=== PATIENT | female | born 1995 ===

== ENCOUNTER 2019-12-09 23:30 | Emergency (ER) | payer SELFPAY ==
--- NOTE | 2019-12-10 00:26 | ER Document Report ---
ED Medical Screen (RME) - General Chief Complaint: Vag Bleeding, +preg <12wks Stated Complaint: VAGINAL BLEEDING/8 WEEKS Time Seen by Provider: 12/10/19 00:22 Mode of Arrival: Ambulatory Information source: Patient Notes: Patient is an otherwise healthy 24-year-old female G1, P0 presenting to the emergency department with complaints of vaginal bleeding in the setting of early . Patient reports she is approximately 8 weeks , states that she started having some bright red bleeding tonight. She denies passage of any clots. She denies any pain or cramping. Patient alert, oriented, no acute distress noted. Abdomen soft, nontender, limited exam due to seated position in triage. I have greeted and performed a rapid initial assessment of this patient. A comprehensive ED assessment and evaluation of the patient, analysis of test results and completion of the medical decision making process will be conducted by additional ED providers. I have specifically instructed the patient or family members with the patient to immediately return to any nursing staff should anything change in the patient's condition or with their chief complaint. - Related Data Allergies/Adverse Reactions: No Known Allergies Allergy (Unverified 12/10/19 00:22) Physical Exam - Vital signs Vitals: Temp Pulse Resp BP Pulse Ox 99.0 F 74 16 110/67 100 12/09/19 23:41 12/09/19 23:41 12/09/19 23:41 12/09/19 23:41 12/09/19 23:41 Course - Vital Signs Vital signs: Temp Pulse Resp BP Pulse Ox 99.0 F 74 16 110/67 100 12/09/19 23:41 12/09/19 23:41 12/09/19 23:41 12/09/19 23:41 12/09/19 23:41
[2019-12-10 00:57] LABS: ABSOLUTE EOSINOPHILS # (AUTO) 0.1 10^3/uL (0.0-0.6); ABSOLUTE LYMPHOCYTES (AUTO) 2.6 10^3/uL (0.5-4.7); ABSOLUTE MONOCYTES (AUTO) 1.7 10^3/uL (0.1-1.4); ABSOLUTE NEUT (AUTO) 9.8 10^3/uL (1.7-8.2); BASOPHILS % (AUTO) 0.3 % (0-2); EOSINOPHILS % (AUTO) 0.7 % (0-6); HEMATOCRIT 38.8 % (36.0-47.0); HEMOGLOBIN 13.1 g/dL (12.0-15.5); LYMPHOCYTES % (AUTO) 18.2 % (13-45); MEAN CORPUSCULAR HEMOGLOBIN 29.2 pg (27.0-33.4); MEAN CORPUSCULAR HGB CONC 33.8 g/dL (32.0-36.0); MEAN CORPUSCULAR VOLUME 87 fl (80-97); MONOCYTES % (AUTO) 11.8 % (3-13); PLATELET COUNT 317 10^3/uL (150-450); RED BLOOD COUNT 4.49 10^6/uL (3.72-5.28); RED CELL DISTRIBUTION WIDTH 13.2 % (11.5-14.0); TOTAL CELLS COUNTED % (AUTO) 100 %; WHITE BLOOD COUNT 14.2 10^3/uL (4.0-10.5)
[2019-12-10 01:03] LABS: APPEARANCE,URINE CLEAR; BILIRUBIN,URINE NEGATIVE (NEGATIVE); COLOR,URINE YELLOW; GLUCOSE, URINE NEGATIVE (NEGATIVE); KETONES,URINE NEGATIVE (NEGATIVE); LEUKOCYTE ESTERASE,URINE NEGATIVE (NEGATIVE); NITRITE,URINE NEGATIVE (NEGATIVE); PROTEIN,URINE NEGATIVE (NEGATIVE); URINE SPECIFIC GRAVITY 1.004; UROBILINOGEN,URINE NEGATIVE mg/dL (<2.0)
--- NOTE | 2019-12-10 01:09 | ER Document Report ---
ED GI/ - General Chief Complaint: Vaginal Bleeding Stated Complaint: VAGINAL BLEEDING/8 WEEKS Time Seen by Provider: 12/10/19 00:22 Mode of Arrival: Ambulatory Notes: Patient is a 24-year-old female, G1, P0 at 8 weeks gestation by last menstrual period, that comes emergency department for chief complaint of vaginal bleeding that started earlier this evening. She noted some bright red blood and passed a couple small clots tonight, however she denies pain, cramping, flank pain, dysuria, vaginal discharge otherwise, fever. She takes vitamins. She states she has been having morning sickness with vomiting intermittently. She denies any other complaints. - Related Data Allergies/Adverse Reactions: No Known Allergies Allergy (Unverified 12/10/19 00:22) Past Medical History - General Information source: Patient - Social History Smoking Status: Never Smoker Chew tobacco use (# tins/day): No Frequency of alcohol use: None Drug Abuse: None Lives with: Family Family History: Reviewed & Not Pertinent - Immunizations Immunizations up to date: Yes Hx Diphtheria, Pertussis, Tetanus Vaccination: Yes Review of Systems - Review of Systems Constitutional: No symptoms reported EENT: No symptoms reported Cardiovascular: No symptoms reported Respiratory: No symptoms reported Gastrointestinal: No symptoms reported Genitourinary: No symptoms reported Female Genitourinary: See HPI Musculoskeletal: No symptoms reported Skin: No symptoms reported Hematologic/Lymphatic: No symptoms reported Neurological/Psychological: No symptoms reported Physical Exam - Vital signs Vitals: Temp Pulse Resp BP Pulse Ox 99.0 F 74 16 110/67 100 12/09/19 23:41 12/09/19 23:41 12/09/19 23:41 12/09/19 23:41 12/09/19 23:41 - Notes Notes: GENERAL: Alert, interacts well. No acute distress. HEAD: Normocephalic, atraumatic. EYES: Pupils equal, round, and reactive to light. Extraocular movements intact. ENT: Oral mucosa moist, tongue midline. Oropharynx unremarkable. Airway patent. NECK: Full range of motion. Supple. Trachea midline. No lymphadenopathy. LUNGS: Clear to auscultation bilaterally, no wheezes, rales, or rhonchi. No respiratory distress. Non-tender chest wall. HEART: Regular rate and rhythm. No murmur ABDOMEN: Soft, non-tender. Non-distended. Bowel sounds present in all 4 quadrants. GENITOURINARY: Deferred EXTREMITIES: Moves all 4 extremities spontaneously. No edema, normal radial and dorsalis pedis pulses bilaterally. No cyanosis. BACK: no cervical, thoracic, lumbar midline tenderness. No saddle anesthesia, normal distal neurovascular exam. Moves all extremities in full range of motion. NEUROLOGICAL: Alert and oriented x3. Normal speech. Cranial nerves II through XII grossly intact. Strength 5/5 in all extremities. PSYCH: Normal affect, normal mood. SKIN: Warm, dry, normal turgor. No rashes or lesions noted. Course - Re-evaluation Re-evalutation: Patient well-appearing with no symptoms on my evaluation, soft benign abdomen, unremarkable vital signs. No complaints of pain. CBC unremarkable, RhoGam is not indicated, hCG is elevated, ultrasound showing living intrauterine with subchorionic hemorrhage. No concerning findings otherwise. Discussed this at length with patient, provided with copy of report, discussed recommendations and return precautions. Patient states understanding and agreement. Patient provided with nausea medication for morning sickness on request. - Vital Signs Vital signs: Temp Pulse Resp BP Pulse Ox 98.1 F 82 14 109/65 100 12/10/19 04:08 12/10/19 04:08 12/10/19 04:08 12/10/19 04:08 12/10/19 04:08 - Laboratory Result Diagrams: 12/10/19 00:39 12/10/19 00:39 Laboratory results interpreted by me: 12/10/19 12/10/19 12/10/19 00:39 00:39 00:39 WBC 14.2 H Absolute Neuts (auto) 9.8 H Absolute Monos (auto) 1.7 H Creatinine 0.49 L Calcium 10.3 H Beta HCG, Quant 414774.00 H Urine Blood LARGE H Discharge - Discharge Clinical Impression: Vaginal bleeding affecting early Condition: Stable Disposition: HOME, SELF-CARE Additional Instructions: There is a in the uterus with a heartbeat as we discussed. You have subchorionic hemorrhages as we discussed, please perform pelvic rest with the goal of making this bleeding stopped. Avoid any intense physical activity including lifting, running, jumping, sexual course, etc. until this resolves/you are cleared by [facility]. I recommend that you take the Reglan if needed to avoid vomiting, you can take Benadryl 12.5 to 25 mg along with this if needed for morning sickness. Follow-up with the [facility] referral and/or the health department. Return if you worsen including severe worsening bleeding, severe pain, dizziness, passing out, or any other concerning symptoms. Prescriptions: Metoclopramide HCl [Reglan] 5 mg PO ASDIR PRN #30 tablet PRN Reason:
[2019-12-10 01:13] LABS: ALBUMIN 4.5 g/dL (3.5-5.0); ALKALINE PHOSPHATASE 65 U/L (38-126); ANION GAP 10 (5-19); ASPARTATE AMINO TRANSFERASE 21 U/L (14-36); BILIRUBIN,TOTAL 0.2 mg/dL (0.2-1.3); BLOOD UREA NITROGEN 11 mg/dL (7-20); CALCIUM 10.3 mg/dL (8.4-10.2); CARBON DIOXIDE 27 mmol/L (22-30); CHLORIDE 101 mmol/L (98-107); GLUCOSE 88 mg/dL (75-110); POTASSIUM 4.9 mmol/L (3.6-5.0); TOTAL PROTEIN 7.3 g/dL (6.3-8.2)
--- NOTE | 2019-12-10 03:49 | RADIOLOGY REPORT (SQ) ---
EXAM DESCRIPTION: US TRANSVAGINAL COMPLETED DATE/TME: 12/10/2019 00:24 CLINICAL HISTORY: 24 years Female, 8 weeks preg, vag bleed COMPARISON: None TECHNIQUE: Transvaginal. LIMITATIONS: None. FINDINGS: Living intrauterine fetus measures 8w1d with TAYLOR of 07/20/2020. Cardiac activity is 180-bpm. [place]-rump length is 1.7-cm. 2.9-cm and 0.9-cm perigestational hemorrhage. 2-cm right ovary, 3-cm left ovary, 2.7-cm cervical length, and no free fluid appear otherwise unremarkable. IMPRESSION: Living 1st trimester intrauterine gestation. 2.9-cm and 0.9-cm perigestational hemorrhage.
[2019-12-10 04:08] VITALS: BP 109/65
== END 2019-12-10 04:13 | disposition home or self-care (01) ==
LOC: ER 23:30
DX: O46.91 Antepartum hemorrhage, unspecified, first trimester (principal); Z3A.08 8 weeks gestation of pregnancy
CPT/HCPCS: 36415; 76817; 80053; 81001; 84702; 85025; 86900; 86901; 99284

== ENCOUNTER → 2019-12-18 | Outpatient (CLI) | payer MEDICAID ==
--- NOTE | 2019-12-18 16:10 | RADIOLOGY REPORT (SQ) ---
EXAM DESCRIPTION: U/S [id number] TRNABD 1GES W/ODOP IMAGES COMPLETED DATE/TIME: 12/18/2019 3:15 pm REASON FOR STUDY: Z34.01 ENCNTR FOR SUPRVSN OF NORMAL FIRST PREG, FIRST TRIMESTER Z34.01 ENCNTR FOR SUPRVSN OF NORMAL FIRST PREG, FIRST TRIMES COMPARISON: None. TECHNIQUE: Transvaginal static and realtime grayscale images acquired of the pelvis. Additional serenity cted spectral and color Doppler images recorded. All images stored on PACs. bHCG: Not available. CLINICAL DATES: 9 weeks 2 days LIMITATIONS: None. FINDINGS: FETUS: Single Living intrauterine . ULTRASOUND EGA: 9 weeks 2 days ULTRASOUND TAYLOR: 07/20/2020 EFW: Not applicable less than 20 weeks. CRL: 2.6 cm FHR: 182 beats per minute. SURVEY: No visualized anomalies. AMNIOTIC FLUID: Adequate amount. PLACENTA: Not yet developed due to early gestation. SUBCHORIONIC BLEED: Yes. SIZE OF BLEED: 2.3 x 1.6 cm. UTERUS: No masses. No anomalies. CERVICAL LENGTH: 2.8 cm. Closed. RIGHT ADNEXA: Normal ovary with normal vascular flow. No adnexal free fluid. No adnexal masses. LEFT ADNEXA: Normal ovary with normal vascular flow. No adnexal free fluid. No adnexal masses. FREE FLUID: None. OTHER: No other significant finding. IMPRESSION: LIVING INTRAUTERINE . EGA 9 weeks 2 days. Small subchronic hemorrhage. Trimester of : First trimester - 0 to 13 weeks. TECHNICAL DOCUMENTATION: JOB ID: [id number] 2010 [employer]- All Rights Reserved rev-11/04 Reading location - IP/workstation name: [facility]-
== END ==
LOC: RAD 14:36
PROVIDERS: ATTEND Midwife
DX: Z34.01 Encounter for supervision of normal first pregnancy, first trimester (principal)
CPT/HCPCS: 76801

== ENCOUNTER 2020-04-25 04:19 | Inpatient (IN) | payer MEDICAID ==
[2020-04-25] MEDS ORDERED: BETAMET ACET/BETAMET NA INJ 6 MG/1 ML ONE (04:41)
[2020-04-25] MEDS ORDERED: AMPICILLIN SOD INJ 2 GM VIAL ONE ×2 (04:41→10:48)
[2020-04-25] MEDS ORDERED: MAGNESIUM SULFATE 4 GM/100 ML RTUPB IV ONE ×2 (04:44→04:48)
[2020-04-25] MEDS ORDERED: MAGNESIUM SULFATE 20 GM/500 ML RTUINJ IV ONE (04:44)
[2020-04-25] MEDS ORDERED: MAGNESIUM SULFATE 20 GM/500 ML RTUINJ IV PRN (04:48)
[2020-04-25] MEDS ORDERED: BETAMET ACET/BETAMET NA INJ 6 MG/1 ML IM ONE (04:49)
[2020-04-25] MEDS ORDERED: AMPICILLIN SOD INJ 2 GM VIAL IV ONE (04:49)
[2020-04-25 05:21] LABS: APPEARANCE,URINE TURBID; BILIRUBIN,URINE NEGATIVE (NEGATIVE); GLUCOSE, URINE NEGATIVE (NEGATIVE); KETONES,URINE NEGATIVE (NEGATIVE); LEUKOCYTE ESTERASE,URINE MODERATE (NEGATIVE); NITRITE,URINE POSITIVE (NEGATIVE); PROTEIN,URINE 100 mg/dL (NEGATIVE); URINE SPECIFIC GRAVITY 1.006; UROBILINOGEN,URINE NEGATIVE mg/dL (<2.0)
[2020-04-25 05:22] LABS: COLOR,URINE PINK
[2020-04-25 05:31] LABS: URINE AMPHETAMINES SCREEN NEGATIVE; URINE BARBITURATES SCREEN NEGATIVE; URINE BENZODIAZEPINES SCREEN NEGATIVE; URINE COCAINE SCREEN NEGATIVE; URINE MARIJUANA (THC) SCREEN NEGATIVE; URINE METHADONE SCREEN NEGATIVE; URINE PHENCYCLIDINE SCREEN NEGATIVE
--- NOTE | 2020-04-25 05:35 | PDOC TRANSFER SUMMARY ---
General Admission Date: 04/25/20 Transfer Date: 04/25/20 Accepting Facility: [facility] Accepting Physician: Gomez Resuscitation Status: Full Code - Transfer Diagnosis (1) premature rupture of membranes Is this a current diagnosis for this admission?: Yes Diagnosis Summary: The patient presents at 28 wks with ROM. She reports her water broke at 4 am. She was seen in the office the previous day and had an ultrasound. We plan to transfer for interest. - Transfer Medications Home Medications: [id number]/Iron Fum/Folic/Docusate [ 19 Tablet] 1 each PO 04/25/20 Transfer Medications: Current Medications Magnesium Sulfate (Magnesium Sulfate Rtu 20 Gm/500 Ml Premix) 20 gm in 500 mls @ 0 mls/hr IV CONTINUOUS PRN PRN Reason: THIS MED IS NOT "PRN" Stop: 05/25/20 04:47 - Allergies Allergies/Adverse Reactions: No Known Allergies Allergy (Verified 04/25/20 04:27) - Diet/Activity Discharge Diet: Regular Discharge Activity: Balance Activity w/Rest Hospital Course Hospital Course: She was transferred coty for SROM at 4 am today. We have started Magnesium and antibiotics. Physical Exam Vital Signs: Intake & Output 04/23/20 04/24/20 04/25/20 06:59 06:59 06:59 Weight 65.9 kg General appearance: PRESENT: no acute distress, well-developed, well-nourished Head exam: PRESENT: atraumatic, normocephalic Neck exam: ABSENT: carotid bruit, JVD, lymphadenopathy, thyromegaly Respiratory exam: PRESENT: clear to auscultation jenny. ABSENT: rales, rhonchi, wheezes Cardiovascular exam: PRESENT: RRR. ABSENT: diastolic murmur, rubs, systolic murmur GI/Abdominal exam: PRESENT: other - gravid Gentrourinary exam: PRESENT: other - 1 cm and 90% vtx Extremities exam: PRESENT: full ROM. ABSENT: calf tenderness, clubbing, pedal edema Results Laboratory Results: 04/25/20 04:25 Urine Color PINK Urine Appearance TURBID Urine pH 8.0 Ur Specific [place] 1.006 Urine Protein 100 H Urine Glucose (UA) NEGATIVE Urine Ketones NEGATIVE Urine Blood LARGE H Urine Nitrite POSITIVE H Ur Leukocyte Esterase MODERATE H Urine WBC (Auto) >182 Urine RBC (Auto) >182 Impressions: SROM at 28 wks Plan Discharge Plan: Plan steroids antibiotics and transfer for NICU care on Magnesium. Time Spent: Greater than 30 Minutes
[2020-04-25] MEDS ORDERED: PROMETHAZINE HCL INJ 25 MG/1 ML VIAL ONE (06:43)
[2020-04-25] MEDS ORDERED: NALBUPHINE HCL INJ 10 MG/1 ML AMPULE ONE (06:43)
[2020-04-25] MEDS ORDERED: PROMETHAZINE HCL INJ 25 MG/1 ML VIAL IV ONE (06:47)
[2020-04-25] MEDS ORDERED: NALBUPHINE HCL INJ 10 MG/1 ML AMPULE INJ ONE (06:47)
[2020-04-25] MEDS ORDERED: MISOPROSTOL 0.2 MG TABLET ONE (07:10)
[2020-04-25] MEDS ORDERED: LIDOCAINE 1% INJ-PF (10 MG/ML) 30 ML SDV ONE (07:10)
[2020-04-25] MEDS ORDERED: OXYTOCIN 10 UNIT/ML VIAL ONE (07:10)
[2020-04-25] MEDS ORDERED: OXYTOCIN/0.9 % SODIUM CHLORIDE 0 UNIT/0 ML RTUINJ ONE (07:11)
[2020-04-25 07:24] LABS: CHLAM PCR NOT DETECTED (NOT DETECT)
[2020-04-25] MEDS ORDERED: AZITHROMYCIN INJ 500 MG VIAL IV ONE ×2 (07:45→07:47)
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
[2020-04-25 08:24] LABS: HEMOGLOBIN 11.2 g/dL (12.0-15.5); MEAN CORPUSCULAR HEMOGLOBIN 30.3 pg (27.0-33.4); MEAN CORPUSCULAR VOLUME 87 fl (80-97); PLATELET COUNT 238 10^3/uL (150-450); RED BLOOD COUNT 3.69 10^6/uL (3.72-5.28); RED CELL DISTRIBUTION WIDTH 13.3 % (11.5-14.0); WHITE BLOOD COUNT 19.6 10^3/uL (4.0-10.5)
[2020-04-25 09:03] LABS: ABSOLUTE LYMPHOCYTES# (MANUAL) 0.6 10^3/uL (0.5-4.7); ABSOLUTE MONOCYTES # (MANUAL) 0.8 10^3/uL (0.1-1.4); BAND NEUTROPHILS % (MANUAL) 2 % (3-5); BASOPHILS % (MANUAL) 0 % (0-2); EOSINOPHILS % (MANUAL) 0 % (0-6); LYMPHOCYTES % (MANUAL) 3 % (13-45); MONOCYTES % (MANUAL) 4 % (3-13); PLATELET COMMENT ADEQUATE; RBC MORPHOLOGY COMMENT NORMO-CYTIC/CHROMIC; SEGMENTED NEUTROPHILS % (MAN) 91 % (42-78); TOTAL CELLS COUNTED 100
[2020-04-25] MEDS ORDERED: NORMAL SALINE 250 ML IV PRN ×2 (09:19)
[2020-04-25 09:23] LABS: BACTERIA (WET MOUNT) 4+ BACTERIA SEEN; EPITHELIALS (WET MOUNT) 4+ EPITHELIALS SEEN; RBCS (WET MOUNT) 4+ RBCS SEEN; T.VAGINALIS (WET MOUNT) NO TRICHOMONAS SEEN; WBCS (WET MOUNT) 1+ WBCS SEEN; YEAST (WET MOUNT) NO YEAST SEEN
[2020-04-25 09:48] LABS: HEMATOCRIT 32.8 % (36.0-47.0); HEMOGLOBIN 11.3 g/dL (12.0-15.5); MEAN CORPUSCULAR HGB CONC 34.6 g/dL (32.0-36.0); MEAN CORPUSCULAR VOLUME 87 fl (80-97); PLATELET COUNT 232 10^3/uL (150-450); RED BLOOD COUNT 3.79 10^6/uL (3.72-5.28); RED CELL DISTRIBUTION WIDTH 13.3 % (11.5-14.0); WHITE BLOOD COUNT 20.6 10^3/uL (4.0-10.5)
[2020-04-25 09:53] LABS: INTERNATIONAL RATION (INR) 0.98; PROTHROMBIN TIME 13.2 SEC (11.4-15.4)
[2020-04-25 09:54] LABS: FIBRINOGEN 577 mg/dL (209-497); PARTIAL THROMBOPLASTIN TIME 29.5 SEC (23.5-35.8)
[2020-04-25 10:03] LABS: ABSOLUTE LYMPHOCYTES# (MANUAL) 1.6 10^3/uL (0.5-4.7); ABSOLUTE MONOCYTES # (MANUAL) 0.6 10^3/uL (0.1-1.4); BAND NEUTROPHILS % (MANUAL) 1 % (3-5); BASOPHILS % (MANUAL) 0 % (0-2); EOSINOPHILS % (MANUAL) 1 % (0-6); LYMPHOCYTES % (MANUAL) 7 % (13-45); MONOCYTES % (MANUAL) 3 % (3-13); SEGMENTED NEUTROPHILS % (MAN) 87 % (42-78); TOTAL CELLS COUNTED 100
[2020-04-25 10:04] LABS: PLATELET COMMENT ADEQUATE; RBC MORPHOLOGY COMMENT NORMO-CYTIC/CHROMIC
--- NOTE | 2020-04-25 10:27 | PDOC TRANSFER SUMMARY ---
General Admission Date/PCP: 04/25/20 07:17 EVELIA CAMARGO MD Admission Date: 04/25/20 Transfer Date: 04/25/20 Accepting Facility: [facility] Accepting Physician: Wilfredo Rousseau MD Resuscitation Status: Full Code - Transfer Diagnosis (1) premature rupture of membranes Is this a current diagnosis for this admission?: Yes Diagnosis Summary: 25yo at 28+1ega by LMP and c/w 9+2ega US presented to Labor and delivery with PPROM at 0400 clear fluid. TAYLOR 07/17/3020. EFW in office on 04/24/2020 was 2#3oz (1003g) (8.5%). YESENIA normal. LImited anatomy per report. Upon presentation after PPROM she was documented to 1cm. Transfer was initiated by provider Dr. Thompson this am. He was then notified that by RN ck she was 5/100/0. Upon my arrival at 0800 I was informed that the transfer was cancelled due to patient cervical change. I was asked to eval patient at approx 0900 due to gush of blood and clot - cvx 2/100/0 (generous to say 2-3). However, apparently patient had received Nubain just prior to 0700 and baby now was minimal variability and late decels. POsition changed and stat labs ordered and recussitation. Reviewed if no improvement she may need a c/s for indications. Now reassuring FWB and variability improved with 5x5 accels CBC stable and Platlets stable. D/w Dr. Vann ([facility]) reagarding patient and now stable and not impending delivery as cervix was only 2cm not 5cm as was previously thought and would like to transfer. Now that patient is stable Dr. Vann agrees with transfer. Appreciate Dr. Vann's assitance. Amp/Azithro/BMZ/Magnesium Sulfate already initiated. Reviewed plan of care with patient and family and they desire transfer as well. QBL (weight of blood loss o pad counts) approx 225ml Appreciate Dr. Rousseau acceptance of patient and their continuing care of patient. - Transfer Medications Home Medications: [id number]/Iron Fum/Folic/Docusate [ 19 Tablet] 1 each PO DAILY 04/25/20 Transfer Medications: Current Medications Magnesium Sulfate (Magnesium Sulfate Rtu 20 Gm/500 Ml Premix) 20 gm in 500 mls @ 0 mls/hr IV CONTINUOUS PRN PRN Reason: THIS MED IS NOT "PRN" Stop: 05/25/20 04:47 (4 gram load, 2grams per hour) Sodium Chloride (Nacl 0.9% 250 Ml Iv Soln) 250 mls @ 30 mls/hr IV .DURING TRANSFUSION PRN PRN Reason: THIS MED IS NOT "PRN" Stop: 04/26/20 09:18 Sodium Chloride (Nacl 0.9% 250 Ml Iv Soln) 250 mls @ 0 mls/hr IV CONTINUOUS PRN PRN Reason: AFTER EACH UNIT Stop: 04/26/20 09:18 Ampcillin 2grams at 0455 BMZ 12mg 0453 Azithromycin 500mg at 0753 - Allergies Allergies/Adverse Reactions: No Known Allergies Allergy (Verified 04/25/20 04:27) - Diet/Activity Discharge Diet: Regular, Other (Comments) - hold food for now until transfer Discharge Activity: Bedrest Hospital Course Hospital Course: 25yo at 28+1ega by LMP and c/w 9+2ega US presented to Labor and delivery with PPROM at 0400 clear fluid. TAYLOR 07/17/3020. EFW in office on 04/24/2020 was 2#3oz (1003g) (8.5%). YESENIA normal. LImited anatomy per report. Upon presentation after PPROM she was documented to 1cm. Transfer was initiated by provider Dr. Thompson this am. He was then notified that by RN gurpreet she was 5/100/0. Upon my arrival at 0800 I was informed that the transfer was cancelled due to patient cervical change. I was asked to eval patient at approx 0900 due to gush of blood and clot - cvx 2/100/0 (generous to say 2-3). However, apparently patient had received Nubain just prior to 0700 and baby now was minimal variability and late decels. POsition changed and stat labs ordered and recussitation. Reviewed if no improvement she may need a c/s for indications. Now reassuring FWB and variability improved with 5x5 accels CBC stable and Platlets stable. D/w Dr. Vann ([facility]) reagarding patient and now stable and not impending delivery as cervix was only 2cm not 5cm as was previously thought and would like to transfer. Now that patient is stable Dr. Vann agrees with transfer. Appreciate Dr. Vann's assitance. Amp/Azithro/BMZ/Magnesium Sulfate already initiated. Reviewed plan of care with patient and family and they desire transfer as well. Physical Exam Vital Signs: Intake & Output 04/24/20 04/25/20 04/26/20 06:59 06:59 06:59 Intake Total 250 Balance 250 Weight 65.9 kg General appearance: PRESENT: no acute distress, well-developed, well-nourished Head exam: PRESENT: atraumatic, normocephalic Respiratory exam: PRESENT: clear to auscultation jenny. ABSENT: rales, rhonchi, wheezes Cardiovascular exam: PRESENT: RRR, tachycardia - mild, responding to fluid bolus. ABSENT: diastolic murmur, rubs, systolic murmur Pulses: PRESENT: normal dorsalis pedis pul Vascular exam: PRESENT: normal capillary refill GI/Abdominal exam: PRESENT: normal bowel sounds, soft, other - gravid. Uterus soft between contractions. ABSENT: distended, guarding, mass, organolmegaly, rebound, tenderness Rectal exam: PRESENT: deferred Extremities exam: PRESENT: full ROM. ABSENT: calf tenderness, clubbing, pedal edema Neurological exam: PRESENT: alert, awake, oriented to person, oriented to place, oriented to time, oriented to situation, CN II-XII grossly intact. ABSENT: motor sensory deficit Psychiatric exam: PRESENT: appropriate affect, normal mood. ABSENT: homicidal ideation, suicidal ideation Skin exam: PRESENT: dry, intact, warm. ABSENT: cyanosis, rash Results Laboratory Results: 04/25/20 09:30 04/25/20 04/25/20 04/25/20 04:25 08:06 08:06 WBC 19.6 H RBC 3.69 L Hgb 11.2 L Hct 32.0 L MCV 87 MCH 30.3 MCHC 35.0 RDW 13.3 Plt Count 238 Seg Neutrophils % Not Reportable Urine Color PINK Urine Appearance TURBID Urine pH 8.0 Ur Specific [place] 1.006 Urine Protein 100 H Urine Glucose (UA) NEGATIVE Urine Ketones NEGATIVE Urine Blood LARGE H Urine Nitrite POSITIVE H Ur Leukocyte Esterase MODERATE H Urine WBC (Auto) >182 Urine RBC (Auto) >182 Blood Type O POSITIVE Antibody Screen NEGATIVE 04/25/20 09:30 WBC 20.6 H RBC 3.79 Hgb 11.3 L Hct 32.8 L MCV 87 MCH 30.0 MCHC 34.6 RDW 13.3 Plt Count 232 Seg Neutrophils % Not Reportable Urine Color Urine Appearance Urine pH Ur Specific [place] Urine Protein Urine Glucose (UA) Urine Ketones Urine Blood Urine Nitrite Ur Leukocyte Esterase Urine WBC (Auto) Urine RBC (Auto) Blood Type Antibody Screen Plan Discharge Plan: Transfer to [facility] Time Spent: Greater than 30 Minutes
[2020-04-25] MEDS ORDERED: PENICILLIN G POTASSIUM 2,500,000 UNIT in DEXTROSE 5%-WATER 50 ML IV SCH (11:00)
== END 2020-04-25 12:40 | disposition short-term general hospital (02) | DRG 833 ==
LOC: LC 04:19 → LR 07:17
PROVIDERS: ADMIT Student in an Organized Health Care Education/Training Program; ATTEND Student in an Organized Health Care Education/Training Program
DX: O42.913 Preterm premature rupture of membranes, unspecified as to length of time between rupture and onset of labor, third trimester (principal); Z3A.28 28 weeks gestation of pregnancy; Z20.828 Contact with and (suspected) exposure to other viral communicable diseases
CPT/HCPCS: 36415; 80307; 81001; 85025; 85384; 85610; 85730; 86592; 86850; 86900; 86901; 86920; 87081; 87086; 87210; 87491; 87591; 94760; 96372; J0290; J0456; J0702; J2300; J2540; J2550; J2590; J3475; J3490; J7060